=== PATIENT | male | born 1985 | race Hispanic/Latino ===

== ENCOUNTER 2018-09-30 11:33 | Emergency (ER) | payer SELFPAY ==
[2018-09-30 11:41] VITALS: BP 128/72
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
[2018-09-30] MEDS ORDERED: IBUPROFEN PO ONE (13:03)
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
== END 2018-09-30 13:24 | disposition home or self-care (01) ==
LOC: ED 11:33
DX: S00.03XA Contusion of scalp, initial encounter (principal); F17.200 Nicotine dependence, unspecified, uncomplicated; Y04.2XXA Assault by strike against or bumped into by another person, initial encounter; Y93.67 Activity, basketball; Y92.488 Other paved roadways as the place of occurrence of the external cause; Y99.8 Other external cause status
CPT/HCPCS: 70450; 99283